=== PATIENT | female | born 1940 | race Caucasian/White ===

== ENCOUNTER 2020-09-11 11:35 | Outpatient (REF) | payer MEDICARE, OTHER, SELFPAY ==
--- NOTE | ~2020-09-11 | XR_ITS ---
EXAMINATION: XR HIP, RIGHT CLINICAL INFORMATION: Right hip pain. COMPARISON: None TECHNIQUE: Two views of the right hip. AP pelvis one view. FINDINGS: AP pelvis: There is mild loss of bilateral SI joints and hip joint space without bony erosive changes. No visible acute fracture or dislocation seen. There is moderate loss of L4-L5 disc height with moderate ventral spondylosis. No acute fracture or lytic process seen. Right hip: AP and frog-leg views right hip reveal mild loss of right hip joint space. No bony erosive changes. No visible acute fracture or dislocation seen. 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 No visible acute fracture, dislocation or subluxation seen.
== END 2020-09-11 11:36 | disposition home or self-care (01) ==
LOC: HO.HMGCX 11:35
PROVIDERS: PCP Internal Medicine; Visit Provider Internal Medicine
DX: M25.551 Pain in right hip (principal); G89.29 Other chronic pain
CPT/HCPCS: 73502